=== PATIENT | male | born 1995 | race Caucasian/White ===

== ENCOUNTER 2017-06-02 14:02 | Emergency (ER) | payer SELFPAY ==
[~2017-06-02] VITALS: Ht 185.4 cm; Wt 77.3 kg
[2017-06-02] MEDS ORDERED: AUGMENTIN 875 MG TAB PO ONE (16:15)
[2017-06-02] MEDS ORDERED: NORCO, ANEXSIA 5/325MG TABLET (HYDROcodone/ACETAMINOPHEN) PO ONE (16:15)
--- NOTE | 2017-06-02 16:59 | REP ---
CT Head without contrast HISTORY: Headache COMPARISON: 11/12/2011 There is no intraparenchymal hemorrhage, acute infarct, mass or midline shift. The ventricular system is normal in appearance. There is no extra cerebral collection. There is no fracture. Minimal mucosal thickening is present in the left ethmoid sinus. IMPRESSION: There is no intracranial lesion. Signed by Oseas Gonzales MD 06/02/2017 04:50 P
[2017-06-02] MEDS ORDERED: AUGM875T28 PO (17:03)
[2017-06-02] MEDS ORDERED: NORCOTAB PO (17:03)
[2017-06-02 17:10] VITALS: BP 139/91
[2017-06-02] MEDS ORDERED: ONDANSETRON 4 MG ORAL DISINTEGRATING TAB (S0181) PO ONE (17:15)
== END 2017-06-02 17:12 | disposition home or self-care (01) ==
LOC: M ED 14:02
DX: J01.10 Acute frontal sinusitis, unspecified (principal); F17.210 Nicotine dependence, cigarettes, uncomplicated

== ENCOUNTER 2017-12-19 16:28 | Inpatient (IN) | payer MEDICAID, OTHER, SELFPAY ==
[2017-12-19] MEDS ORDERED: MAALOX 30 ML SUSP *UDC PO (22:45)
[2017-12-19] MEDS ORDERED: OLANZapine 5 MG TAB PO (22:45)
[2017-12-19] MEDS ORDERED: MOM 30ML SUSPENSION UDC PO (22:45)
[2017-12-20] MEDS: traZODone 50 MG TAB PO (00:53)
[2017-12-20] MEDS: ACETAMINOPHEN TAB 650MG DOSE (2X325MG) PO ×3 (00:53→15:35)
[2017-12-20 10:59] LABS: HEMATOCRIT 45.6 % (42.0-52.0); HEMOGLOBIN 15.8 g/dl (13.5-17.5); MEAN CORPUSCULAR HEMOGLOBIN 30.6 pg (27.0-33.0); MEAN CORPUSCULAR HGB CONC 34.6 g/dl (32.0-36.5); MEAN CORPUSCULAR VOLUME 88.2 fl (80.0-96.0); PLATELET COUNT, AUTOMATED 263 10^3/uL (150-450); RED BLOOD COUNT 5.17 10^6/uL (4.30-6.10); RED CELL DISTRIBUTION WIDTH 12.3 % (11.5-14.5)
[2017-12-20 11:20] LABS: ANION GAP 6 MEQ/L (8-16); AST/SGOT 14 U/L (7-37); BLOOD UREA NITROGEN 9 MG/DL (7-18); CALCIUM LEVEL 9.7 MG/DL (8.5-10.1); CARBON DIOXIDE LEVEL 29 MEQ/L (21-32); CHLORIDE LEVEL 105 MEQ/L (98-107); CREATININE FOR GFR 0.93 MG/DL (0.70-1.30); GLOMERULAR FILTRATION RATE > 60.0 (>60); GLUCOSE, FASTING 86 MG/DL (70-100); SODIUM LEVEL 140 MEQ/L (136-145)
[2017-12-20 11:21] LABS: ALBUMIN 4.6 GM/DL (3.2-5.2); ALBUMIN/GLOBULIN RATIO 1.28 (1.00-1.93); ALKALINE PHOSPHATASE 84 U/L (45-117); ALT/SGPT 21 U/L (12-78); BILIRUBIN,TOTAL 0.9 MG/DL (0.2-1.0); TOTAL PROTEIN 8.2 GM/DL (6.4-8.2)
[2017-12-20] MEDS: NICOTINE POLACRILEX 2 MG GUM PO ×2 (13:12→17:32)
[2017-12-20] MEDS: GABAPENTIN 100 MG CAP PO (21:53)
== END 2017-12-21 06:15 | disposition home or self-care (01) | DRG 760 ==
LOC: M ED 16:28 → M PSY 23:10
DX: F22 Delusional disorders (principal); R45.851 Suicidal ideations

== ENCOUNTER 2018-03-27 22:26 | Emergency (ER) | payer MEDICAID ==
[2018-03-27] MEDS: NS 1,000 ML IV (23:22)
[2018-03-27 23:29] LABS: ANION GAP 16 MEQ/L (8-16); BLOOD UREA NITROGEN 9 MG/DL (7-18); CALCIUM LEVEL 9.7 MG/DL (8.5-10.1); CARBON DIOXIDE LEVEL 20 MEQ/L (21-32); CHLORIDE LEVEL 106 MEQ/L (98-107); CPK CREATINE PHOSPHOKINASE 259 U/L (39-308); CREATININE FOR GFR 0.95 MG/DL (0.70-1.30); GLOMERULAR FILTRATION RATE > 60.0 (>60); GLUCOSE, FASTING 124 MG/DL (70-100); POTASSIUM SERUM 3.1 MEQ/L (3.5-5.1); SODIUM LEVEL 142 MEQ/L (136-145)
[2018-03-27 23:39] LABS: BASO % 0.4 % (0.0-1.0); EOS % 0.4 % (0.0-3.0); HEMATOCRIT 46.6 % (42.0-52.0); IMMATURE GRANULOCYTE % 0.3 % (0-3.0); LYMPH # 2.5 10^3/uL (1.5-6.5); LYMPH % 24.1 % (24.0-44.0); MEAN CORPUSCULAR HEMOGLOBIN 30.8 pg (27.0-33.0); MEAN CORPUSCULAR HGB CONC 36.5 g/dl (32.0-36.5); MEAN CORPUSCULAR VOLUME 84.4 fl (80.0-96.0); MONO # 0.6 10^3/uL (0.0-0.8); NEUTROPHILS # 7.3 10^3/uL (1.8-7.7); NEUTROPHILS % 68.8 % (36.0-66.0); PLATELET COUNT, AUTOMATED 225 10^3/uL (150-450); RED BLOOD COUNT 5.52 10^6/uL (4.30-6.10); RED CELL DISTRIBUTION WIDTH 11.9 % (11.5-14.5); WHITE BLOOD COUNT 10.5 10^3/uL (4.0-10.0)
[2018-03-28] MEDS: POTASSIUM CHLORIDE 10% LIQ 20 MEQ/15 ML UDC PO (00:21)
== END 2018-03-28 00:37 | disposition home or self-care (01) ==
LOC: M ED 03-28 00:37
DX: R25.2 Cramp and spasm (principal); T67.3XXA Heat exhaustion, anhydrotic, initial encounter; F41.9 Anxiety disorder, unspecified; F17.210 Nicotine dependence, cigarettes, uncomplicated
CPT/HCPCS: 82550

== ENCOUNTER 2019-01-30 01:24 | Emergency (ER) | payer MEDICAID, OTHER ==
[~2019-01-30] VITALS: Ht 182.9 cm; Wt 79.5 kg
[~2019-01-30 01:24] MED LIST: ARIP1TAB6 PO; AUGM875T28 PO; GABA-1171 PO; HYDR-3715 PO; IBUPOTC PO; TRAZ1TAB10 PO
[2019-01-30 01:27] VITALS: BP 142/98
[2019-01-30] MEDS ORDERED: NS 1,000 ML IV ONE (01:45)
== END 2019-01-30 02:34 | disposition left against medical advice (07) ==
LOC: M ED 01:24
DX: T67.5XXA Heat exhaustion, unspecified, initial encounter (principal); Y92.9 Unspecified place or not applicable; Y93.9 Activity, unspecified; Z53.21 Procedure and treatment not carried out due to patient leaving prior to being seen by health care provider; F32.9 Major depressive disorder, single episode, unspecified; Z72.0 Tobacco use

== ENCOUNTER 2019-08-29 16:45 | Inpatient (IN) | payer OTHER, SELFPAY ==
[~2019-08-29] VITALS: Ht 182.9 cm; Wt 69.7 kg
[2019-08-29 17:24] LABS: BASO % 0.2 % (0.0-1.0); HEMATOCRIT 59.6 % (42.0-52.0); LYMPH # 0.4 10^3/uL (1.5-5.0); LYMPH % 2.4 % (24.0-44.0); MEAN CORPUSCULAR HGB CONC 33.2 g/dl (32.0-36.5); MEAN CORPUSCULAR VOLUME 90.4 fl (80.0-96.0); MONO # 0.6 10^3/uL (0.0-0.8); MONO % 3.9 % (0.0-5.0); NEUTROPHILS # 14.9 10^3/uL (1.5-8.5); NEUTROPHILS % 93.1 % (36.0-66.0); PLATELET COUNT, AUTOMATED 248 10^3/uL (150-450); RED BLOOD COUNT 6.59 10^6/uL (4.30-6.10)
[2019-08-29 17:26] LABS: HEMOGLOBIN 19.8 g/dl (13.5-17.5)
[2019-08-29] MEDS ORDERED: ONDANSETRON 4MG/2ML VIAL (J2405) IV ONE (17:30)
[2019-08-29] MEDS ORDERED: KETOROLAC 30 MG/ML VIAL (J1885) IV ONE (17:30)
[2019-08-29] MEDS ORDERED: NS 1,000 ML IV ONE (17:30)
[2019-08-29 17:47] LABS: INFLUENZA A AMPLIFICATION NEGATIVE (NEGATIVE); INFLUENZA B AMPLIFICATION NEGATIVE (NEGATIVE)
[2019-08-29 17:52] LABS: ALBUMIN 5.5 GM/DL (3.2-5.2); BILIRUBIN,DIRECT 0.3 MG/DL (0.0-0.2); BILIRUBIN,TOTAL 1.1 MG/DL (0.2-1.0); TOTAL PROTEIN 9.3 GM/DL (6.4-8.2)
--- NOTE | 2019-08-29 17:57 | REP ---
Clinical: Chest pain and shortness of breath . Comparison: None . Technique: PA and lateral. Findings: The mediastinum and cardiac silhouette are normal. The lung de la garza are clear and without acute consolidation, effusion, or pneumothorax. The skeletal structures are intact and normal. Impression: 1. No acute cardiopulmonary process. Electronically Signed by Estevan Casas MD 08/29/2019 05:48 P
[2019-08-29 18:15] LABS: INR 1.22; PROTHROMBIN TIME 15.2 SECONDS (11.8-14.0)
[2019-08-29 18:16] LABS: PARTIAL THROMBOPLASTIN TIME 30.5 SECONDS (25.0-38.4)
[2019-08-29 18:30] LABS: CK-MB VALUE MASS 1.7 NG/ML (<3.6); CPK CREATINE PHOSPHOKINASE 114 U/L (39-308); MB/CK RELATIVE INDEX 1.49 (< OR =4); TROPONIN I < 0.02 NG/ML (< 0.10)
[2019-08-29] MEDS ORDERED: ISOVUE-370 76% 100ML VIAL (Q9967) As Ordered ONE (18:37)
[2019-08-29] MEDS ORDERED: NS 1,050 ML in IV 1 EA IV ONE (18:45)
--- NOTE | 2019-08-29 19:32 | REPVR ---
PROCEDURE INFORMATION: Exam: CT Angiography Chest With Contrast Exam date and time: 08/29/2019 6:29 PM Age: 24 years old Clinical indication: Shortness of breath; Chest pain; Additional info: Cp/sob TECHNIQUE: Imaging protocol: Computed tomographic angiography of the chest with intravenous contrast. 3D rendering: MIP and/or 3D reconstructed images were created by the technologist. Radiation optimization: All CT scans at this facility use at least one of these dose optimization techniques: automated exposure control; mA and/or kV adjustment per patient size (includes targeted exams where dose is matched to clinical indication); or iterative reconstruction. Contrast material: ISOVUE 370; Contrast volume: 100 ml; Contrast route: IV; COMPARISON: CR Chest, 2 view PA, Lat 08/29/2019 5:32 PM FINDINGS: Pulmonary arteries: There are no pulmonary emboli. Aorta: There is mild fusiform dilatation of the ascending thoracic aorta which measures 3.6 cm. maximally. There is no dissection or saccular component. Lungs: Unremarkable. No consolidation. No masses. Pleural space: Unremarkable. No pneumothorax. No pleural effusion. Heart: Unremarkable. No cardiomegaly. No pericardial effusion. Lymph nodes: Unremarkable. No enlarged lymph nodes. Bones/joints: Unremarkable. No acute fracture. Soft tissues: Unremarkable. IMPRESSION: 1. There is mild fusiform dilatation of the ascending thoracic aorta which measures 3.6 cm. maximally. There is no dissection or saccular component. 2. There are no pulmonary emboli. 3. No acute pulmonary parenchymal abnormalities. Electronically signed by: Abdulaziz Reynolds On 08/29/2019 19:32:09 PM
--- NOTE | 2019-08-29 19:38 | REPVR ---
PROCEDURE INFORMATION: Exam: CT Abdomen And Pelvis With Contrast Exam date and time: 08/29/2019 6:29 PM Age: 24 years old Clinical indication: Abdominal pain; Generalized; Additional info: Abd pain/v/d TECHNIQUE: Imaging protocol: Computed tomography of the abdomen and pelvis with intravenous contrast. Radiation optimization: All CT scans at this facility use at least one of these dose optimization techniques: automated exposure control; mA and/or kV adjustment per patient size (includes targeted exams where dose is matched to clinical indication); or iterative reconstruction. Contrast material: ISOVUE 370; Contrast volume: 100 ml; Contrast route: IV; COMPARISON: No relevant prior studies available. FINDINGS: Liver: Normal. No mass. Gallbladder and bile ducts: Normal. No calcified stones. No ductal dilation. Pancreas: Normal. No ductal dilation. Spleen: Normal. No splenomegaly. Adrenals: Normal. No mass. Kidneys and ureters: Normal. No hydronephrosis. Stomach and bowel: Unremarkable. No obstruction. No mucosal thickening. Appendix: No evidence of appendicitis. Intraperitoneal space: Unremarkable. No free air. No significant fluid collection. Vasculature: Unremarkable. No abdominal aortic aneurysm. Lymph nodes: Unremarkable. No enlarged lymph nodes. Bladder: Unremarkable as visualized. Reproductive: Unremarkable as visualized. Bones/joints: There is a grade 1/2 anterior spondylolisthesis of L5 on S1 secondary to bilateral L5 spondylolysis. Soft tissues: Unremarkable. IMPRESSION: There is a grade 1/2 anterior spondylolisthesis of L5 on S1 secondary to bilateral L5 spondylolysis. Electronically signed by: Abdulaziz Reynolds On 08/29/2019 19:38:38 PM
--- NOTE | 2019-08-29 19:57 | HPEPDOC ---
[facility] Medical History & Physical Date of Admission Aug 29, 2019 Date of Service: Aug 29, 2019 Primary Care Physician: Rome Pike MD Attending Physician: JEANNIE LASSITER MD History and Physical TIME OF SERVICE: 8:05 PM CHIEF COMPLAINT: Vomiting HISTORY OF PRESENT ILLNESS: This is a 23-year-old male who process with complaints of nonbloody emesis and diarrhea associated with his "heart racing", "muscle aches" fevers and chills that started yesterday after eating angle hair pasta and sausages that his purchased from [employer]. His also developed similar symptoms which have resolved. The patient came to the hospital because he continued to vomit and could not keep any liquids down. He thinks he's vomited more than 100 times in between yesterday and today and he thinks he had about 30 episodes of diarrhea associated with abdominal pain yesterday. REVIEW OF SYSTEMS: 12 point review of systems negative except as listed in HPI PAST MEDICAL/ SURGICAL HISTORY: None SOCIAL HISTORY: He smokes FAMILY HISTORY: CAD Hypertension ALLERGIES: Please see below. HOME MEDICATIONS: Please see below. PHYSICAL EXAMINATION: VITAL SIGNS: Please see below. GEN: Slim build / well developed/ NAD INTEGUMENT: not flushed/ not jaundice HEENT: NCAT / lips acyanotic /mucus membranes dry CVS: RRR/NMRG LUNGS: clear to auscultation bilaterally on room air ABDOMEN: Contour (flat) / soft & not tender with palpation MSK/EXTREMITIES: range of motion intact in all 4 extremities NEURO: CN 2-12 are grossly intact / speech is not dysarthric PSYCH: alert and oriented to person place and time/ able to understand and follow all commands LABORATORY DATA: See below. IMAGING: Chest x-ray " Impression: 1. No acute cardiopulmonary process." CTA chest " IMPRESSION: 1. There is mild fusiform dilatation of the ascending thoracic aorta which measures 3.6 cm. maximally. There is no dissection or saccular component. 2. There are no pulmonary emboli. 3. No acute pulmonary p arenchymal abnormalities. " MICROBIOLOGY: Please see below. ASSESSMENT: Mr. Clark is a 24-year-old male who is admitted for management of dehydration and LAMINE 2/2 gastroenteritis. PLAN: 1. SIRS/Sepsis secondary to viral gastroenteritis He doesn't look toxic, therefore it's unlikely that he is truly septic, the SIRs is likely reactive to gastroenteritis caused by the food that he and his ate. SIRS criteria include HR >90 / WBC >12 / RR > 20 Lactic acid is 3.5 QSOFA score = 1 = not high risk Plan: admit to medical floor / telemetry / intiate Sepsis protocol w repeat lactic acid / will not give antibiotics as this is likely viral gastroenteritis/ f/u blood cx / Acetaminophen PRN for fever / Zofran for vomiting 2. Polycythemia, likely due to dehydration Plan: IV fluids, follow-up CBC in the morning 3. Prerenal LAMINE due to vomiting and diarrhea His creatinine is1.4 which is higher than his previous creatinine of 0.95 The UA was positive for blood and RBCs. Plan: IVF / if his renal function doesn't improve, the daytime team may consider ordering Ulytes and a renal US 4. Tobacco abuse Plan: Nicotine patch. Smoking cessation education DVT PROPHYLAXIS: SCDs DISPOSITION: Home. After more than 2 midnight's stay Vital Signs Vital Signs Date Time Temp Pulse Resp B/P (MAP) Pulse Ox O2 Delivery O2 Flow Rate FiO2 08/29/19 17:14 08/29/19 16:45 99.0 122 22 97 Room Air Laboratory Data Labs 24H Laboratory Tests 2 08/29/19 17:07: Immature Granulocyte % (Auto) 0.4, Neutrophils (%) (Auto) 93.1H, Lymphocytes (%) (Auto) 2.4L, Monocytes (%) (Auto) 3.9, Eosinophils (%) (Auto) 0.0, Basophils (%) (Auto) 0.2, Neutrophils # (Auto) 14.9H, Lymphocytes # (Auto) 0.4L, Monocytes # (Auto) 0.6, Eosinophils # (Auto) 0.0, Basophils # (Auto) 0.0, Nucleated Red Blood Cells % (auto) 0.0, Total Bilirubin 1.1H, Direct Bilirubin 0.3H, Aspartate Amino Transf (AST/SGOT) 14, Alanine Aminotransferase (ALT/SGPT) 32, Alkaline Phosphatase 86, Total Protein 9.3H, Albumin 5.5H, Albumin/Globulin Ratio 1.45, Lipase 28L, Influenza Type A (RT-PCR) NEGATIVE, Influenza Type B (RT-PCR) NEGATIVE 08/29/19 17:08: POC Glucose (Misc Panel) 161H, POC Sodium (Misc Panel) 140, POC Potassium (Misc Panel) 4.2, POC Chloride (Misc Panel) 105, POC Total CO2 (Misc Panel) 22.0L, POC Blood Urea Nitrogen (Misc Panel 29H, POC Ionized Calcium (Misc Panel) 4.8, POC Creatinine (Misc Panel) 1.4H, POC Hematocrit (Misc Panel) 60.0H 08/29/19 17:50: Prothrombin Time 15.2H, Prothromb Time International Ratio 1.22, Activated Partial Thromboplast Time 30.5, D-Dimer, Quantitative 320.75, Lactic Acid Level 3.5*H, Total Creatine Kinase 114, Creatine Kinase MB 1.7, Creatine Kinase MB Relative Index 1.49, Troponin I < 0.02 CBC/BMP Laboratory Tests 08/29/19 17:07 Home Medications No Active Prescriptions or Reported Meds Allergies Coded Allergies: No Known Allergies (Unverified , 01/30/19) A-FIB/CHADSVASC A-FIB History Current/History of A-Fib/PAF?: No Current PO Anticoag Therapy: No JEANNIE LASSITER MD Aug 29, 2019 19:57
[2019-08-29] MEDS ORDERED: MAALOX 30 ML SUSP *UDC PO PRN (20:00)
[2019-08-29] MEDS ORDERED: ONDANSETRON 4MG/2ML VIAL (J2405) IV PRN (20:00)
[2019-08-29] MEDS ORDERED: MOM 30ML SUSPENSION UDC PO PRN (20:00)
[2019-08-29] MEDS ORDERED: ACETAMINOPHEN TAB 650MG DOSE (2X325MG) PO PRN (20:00)
[2019-08-29] MEDS: DOCUSATE SODIUM 100 MG CAP PO SCH (22:09)
[2019-08-29] MEDS: NS 1,000 ML IV SCH (22:09)
--- NOTE | 2019-08-29 22:10 | ECGEPIP ---
[facility] - ED Test Date: 2019-08-29 Pat Name: BRENDEN SEO Department: Room: - Gender: Male [employer]: : 1995 Requested By: MELISSA Diamond PA-C Order Number: [id number] Reading MD: Migel Thurman Measurements Intervals Julian Rate: 108 P: 84 CO: 128 QRS: 83 QRSD: 102 T: 69 QT: 311 QTc: 418 Interpretive Statements SINUS TACHYCARDIA RIGHT ATRIAL ENLARGEMENT LEFT ATRIAL ENLARGEMENT INCOMPLETE RIGHT BUNDLE BRANCH BLOCK BENIGN EARLY REPOLARIZATION SIMILAR TO 12/20/17 Electronically Signed on 08-29-2019 22:09:42 EST by Migel Thurman
[2019-08-29 23:05] VITALS: BP_SYST 146; BP_SYST 149; BP_SYST 154; BP_DIAS 101; BP_DIAS 103; BP_DIAS 97
[2019-08-29 23:21] VITALS: BP 154/101
[2019-08-30] MEDS: NS 1,000 ML IV SCH (00:13)
[2019-08-30 04:40] VITALS: BP 153/82
[2019-08-30 06:00] VITALS: BP 139/77
[2019-08-30 07:20] LABS: HEMATOCRIT 45.4 % (42.0-52.0); MEAN CORPUSCULAR HEMOGLOBIN 29.5 pg (27.0-33.0); MEAN CORPUSCULAR HGB CONC 32.4 g/dl (32.0-36.5); MEAN CORPUSCULAR VOLUME 91.2 fl (80.0-96.0); PLATELET COUNT, AUTOMATED 167 10^3/uL (150-450); RED BLOOD COUNT 4.98 10^6/uL (4.30-6.10); WHITE BLOOD COUNT 9.1 10^3/uL (4.0-10.0)
[2019-08-30 07:32] LABS: HEMOGLOBIN 14.7 g/dl (13.5-17.5)
[2019-08-30 07:44] LABS: BLOOD UREA NITROGEN 19 MG/DL (7-18); CALCIUM LEVEL 8.5 MG/DL (8.5-10.1); CARBON DIOXIDE LEVEL 24 MEQ/L (21-32); CHLORIDE LEVEL 110 MEQ/L (98-107); CREATININE FOR GFR 0.79 MG/DL (0.70-1.30); GLOMERULAR FILTRATION RATE > 60.0 (>60); GLUCOSE, FASTING 93 MG/DL (70-100); POTASSIUM SERUM 4.1 MEQ/L (3.5-5.1); SODIUM LEVEL 140 MEQ/L (136-145)
[2019-08-30] MEDS: DOCUSATE SODIUM 100 MG CAP PO SCH (08:34)
[2019-08-30 10:00] VITALS: BP 156/96
[2019-08-30] MEDS ORDERED: PEPT262T2 PO (10:14)
--- NOTE | 2019-08-30 11:51 | DS.PDOC ---
Discharge Summary General Date of Admission Aug 29, 2019 at 19:57 Date of Discharge 08/30/19 Discharge Summary PROCEDURES PERFORMED DURING STAY: None. ADMITTING DIAGNOSES: 1. . Vital gastroenteritis, acute kidney injury. DISCHARGE DIAGNOSES: 1. Vital gastroenteritis, acute kidney injury. COMPLICATIONS/CHIEF COMPLAINT: Adama,Gastroenteritis. HISTORY OF PRESENT ILLNESS: This is a 23-year-old male who process with complaints of nonbloody emesis and diarrhea associated with his "heart racing", "muscle aches" fevers and chills that started yesterday after eating angle hair pasta and sausages that his purchased from [employer]. His also developed similar symptoms which have resolved. The patient came to the hospital because he continued to vomit and could not keep any liquids down. He thinks he's vomited more than 100 times in between yesterday and today and he thinks he had about 30 episodes of diarrhea associated with abdominal pain yesterday. . HOSPITAL COURSE: Patient admitted with possible viral gastroenteritis and needed observation. Patient was started on IV fluids, overnight he responded very well to the conservative management in the morning. He was given a trial of regular for which he tolerated very well and he is asymptomatic, afebrile and will be discharged home today, his WBC count is within normal range and his BUN is improved as well and he will continue taken oral hydration for dehydration. Patient advised to eliminate any causes of viral gastroenteritis such as l eftover/spoiled food or restaurant food, etc.. DISCHARGE MEDICATIONS: Please see below. ALLERGIES: Please see below. PHYSICAL EXAMINATION ON DISCHARGE: VITAL SIGNS: Please see below. GENERAL: Within normal limits HEENT: PERRLA NECK: Supple CARDIOVASCULAR EXAMINATION: S1, S2, regular RESPIRATORY EXAMINATION: Clear to A&P ABDOMINAL EXAMINATION: Benign EXTREMITIES: No clubbing sinus edema SKIN: Normal NEUROLOGICAL EXAMINATION: . No focal motor sensory deficit PSYCHIATRIC EXAMINATION: Normal LABORATORY DATA: Please see below. IMAGING: CT abdomen and pelvis:IMPRESSION: There is a grade 1/2 anterior spondylolisthesis of L5 on S1 secondary to bilateral L5 spondylolysis. PROGNOSIS: good ACTIVITY: As tolerated. DIET: As tolerated DISCHARGE PLAN: Home DISPOSITION: 01 Home, Self-Care. DISCHARGE INSTRUCTIONS: 1. As per discharge instructions. ITEMS TO FOLLOWUP ON ON OUTPATIENT: 1. Follow with PCP as an outpatient. DISCHARGE CONDITION: Stable. TIME SPENT ON DISCHARGE: 25 minutes. Vital Signs/I&Os Vital Signs Date Time Temp Pulse Resp B/P (MAP) Pulse Ox O2 Delivery O2 Flow Rate FiO2 08/30/19 10:00 98.9 67 19 156/96 (116) 98 Room Air I&O- Last 24 Hours up to 6 AM 08/30/19 06:00 Intake Total 1600 ml Output Total 0 ml Balance 1600 ml Laboratory Data Labs 24H Laboratory Tests 2 08/29/19 17:07: Immature Granulocyte % (Auto) 0.4, Neutrophils (%) (Auto) 93.1H, Lymphocytes (%) (Auto) 2.4L, Monocytes (%) (Auto) 3.9, Eosinophils (%) (Auto) 0.0, Basophils (%) (Auto) 0.2, Neutrophils # (Auto) 14.9H, Lymphocytes # (Auto) 0.4L, Monocytes # (Auto) 0.6, Eosinophils # (Auto) 0.0, Basophils # (Auto) 0.0, Nucleated Red Blood Cells % (auto) 0.0, Total Bilirubin 1.1H, Direct Bilirubin 0.3H, Aspartate Amino Transf (AST/SGOT) 14, Alanine Aminotransferase (ALT/SGPT) 32, Alkaline Phosphatase 86, Total Protein 9.3H, Albumin 5.5H, Albumin/Globulin Ratio 1.45, Lipase 28L, Influenza Type A (RT-PCR) NEGATIVE, Influenza Type B (RT-PCR) NEGATIVE 08/29/19 17:08: POC Glucose (Misc Panel) 161H, POC Sodium (Misc Panel) 140, POC Potassium (Misc Panel) 4.2, POC Chloride (Misc Panel) 105, POC Total CO2 (Misc Panel) 22.0L, POC Blood Urea Nitrogen (Misc Panel 29H, POC Ionized Calcium (Misc Panel) 4.8, POC Creatinine (Misc Panel) 1.4H, POC Hematocrit (Misc Panel) 60.0H 08/29/19 17:50: Prothrombin Time 15.2H, Prothromb Time International Ratio 1.22, Activated Partial Thromboplast Time 30.5, D-Dimer, Quantitative 320.75, Lactic Acid Level 3.5*H, Total Creatine Kinase 114, Creatine Kinase MB 1.7, Creatine Kinase MB Relative Index 1.49, Troponin I < 0.02 08/29/19 20:35: Urine Color YELLOW, Urine Appearance CLEAR, Urine pH 5.0, Urine Specific [place] >1.060H, Urine Protein NEGATIVE, Urine Glucose (UA) NEGATIVE, Urine Ketones NEGATIVE, Urine Blood 1+H, Urine Nitrite NEGATIVE, Urine Bilirubin NEGATIVE, Urine Urobilinogen 0.2, Urine Leukocyte Esterase NEGATIVE, Urine WBC (Auto) 0, Urine RBC (Auto) 7H, Urine Hyaline Casts (Auto) 0, Urine Bacteria (Auto) NEGATIVE, Urine Squamous Epithelial Cells 0, Urine Sperm (Auto) 08/29/19 22:14: Lactic Acid Followup at 4 Hours 1.8 08/30/19 06:39: Nucleated Red Blood Cells % (auto) 0.0, Anion Gap 6L, Glomerular Filtration Rate > 60.0, Calcium Level 8.5 CBC/BMP Laboratory Tests 08/29/19 17:07 08/30/19 06:39 Microbiology Microbiology 08/29/19 Blood Culture, Received Pending Discharge Medications Scheduled PRN Bismuth Subsalicylate (Pepto-Bismol) 262 Mg Tablet, 262 MG PO Q4H PRN for ABDOMINAL PAIN Allergies Coded Allergies: No Known Allergies (Unverified , 01/30/19) VENUS BEAR MD Aug 30, 2019 11:51
== END 2019-08-30 10:51 | disposition home or self-care (01) | DRG 249 ==
LOC: M ED 16:45 → M ED INP 19:57 → ENRESERV 21:34 → M MS5PR 23:02 → M MSPAV 08-30 04:30
PROVIDERS: ADMIT Internal Medicine; ATTEND Internal Medicine
DX: A08.4 Viral intestinal infection, unspecified (principal); D75.1 Secondary polycythemia; E86.0 Dehydration; N17.9 Acute kidney failure, unspecified; F17.200 Nicotine dependence, unspecified, uncomplicated

== ENCOUNTER → 2022-05-03 | Outpatient (CLI) | payer MEDICAID, OTHER ==
[~2022-05-03] MED LIST changes: +PEPT262T2 PO
== END ==
LOC: M RAD 07:44
PROVIDERS: ATTEND Physician Assistant
DX: M54.2 Cervicalgia (principal)

== ENCOUNTER 2024-07-18 17:01 | Emergency (ER) | payer OTHER ==
[~2024-07-18] VITALS: Ht 185.4 cm; Wt 80.6 kg
[2024-07-18 17:45] LABS: HEMATOCRIT 44.7 % (42.0-52.0); HEMOGLOBIN 15.3 g/dl (13.5-17.5); MEAN CORPUSCULAR HEMOGLOBIN 30.7 pg (27.0-33.0); MEAN CORPUSCULAR HGB CONC 34.2 g/dl (32.0-36.5); MEAN CORPUSCULAR VOLUME 89.8 fl (80.0-96.0); PLATELET COUNT, AUTOMATED 246 10^3/uL (150-450); RED BLOOD COUNT 4.98 10^6/uL (4.30-6.10); WHITE BLOOD COUNT 8.1 10^3/uL (4.0-10.0)
[2024-07-18 18:09] LABS: ETHYL ALCOHOL (ETHANOL) < 0.003 % (0.000-0.010)
[2024-07-18 18:11] LABS: ALBUMIN 4.2 G/DL (3.2-5.2); ALKALINE PHOSPHATASE 78 U/L (40-129); ALT/SGPT 16 U/L (7.0-40); AST/SGOT 11 U/L (<34); BILIRUBIN,DIRECT 0.1 MG/DL (<0.4); BILIRUBIN,TOTAL 0.4 MG/DL (0.3-1.2); BLOOD UREA NITROGEN 8 MG/DL (9-23); CALCIUM LEVEL 9.5 MG/DL (8.5-10.1); CARBON DIOXIDE LEVEL 24 MMOL/L (20-31); CHLORIDE LEVEL 107 MMOL/L (98-107); CREATININE FOR GFR 0.66 MG/DL (0.70-1.30); GLOMERULAR FILTRATION RATE > 60.0 (>60); GLUCOSE, FASTING 105 MG/DL (60-100); POTASSIUM SERUM 3.9 MMOL/L (3.5-5.1); SALICYLATE LEVEL < 3.0 MG/DL (<30); SODIUM LEVEL 141 MMOL/L (136-145); TOTAL PROTEIN 7.6 G/DL (5.7-8.2)
[2024-07-18 18:18] LABS: THYROID STIMULATING HORMONE 0.882 uIU/ML (0.55-4.78)
[2024-07-18 18:20] LABS: AMPHETAMINES LEVEL URINE NEGATIVE (NEGATIVE); BARBITURATES URINE NEGATIVE (NEGATIVE); COCAINE METABOLITE URINE NEGATIVE (NEGATIVE); PHENCYCLIDINE URINE NEGATIVE (NEGATIVE)
[2024-07-18 18:21] LABS: BENZODIAZEPINES URINE NEGATIVE (NEGATIVE); METHADONE URINE NEGATIVE (NEGATIVE); OPIATES URINE NEGATIVE (NEGATIVE)
[2024-07-18 18:23] LABS: CANNABINOIDS URINE POSITIVE (NEGATIVE)
[2024-07-18] MEDS ORDERED: HOME MED LIST COMPLETE! XX SCH (19:20)
[2024-07-18 22:58] VITALS: BP 149/97; TEMP 98.3; O2SAT 97
== END 2024-07-18 23:00 | disposition home or self-care (01) ==
LOC: M ED 17:01
DX: F43.0 Acute stress reaction (principal); I10 Essential (primary) hypertension; F41.0 Panic disorder [episodic paroxysmal anxiety]; F17.290 Nicotine dependence, other tobacco product, uncomplicated; Z91.018 Allergy to other foods

== ENCOUNTER 2024-10-11 11:56 | Emergency (ER) | payer OTHER ==
[~2024-10-11] VITALS: Ht 185.4 cm; Wt 75.6 kg
[2024-10-11 13:06] LABS: BASO % 0.2 % (0.0-1.0); EOS % 0.1 % (0.0-3.0); HEMATOCRIT 46.3 % (42.0-52.0); LYMPH # 1.6 10^3/uL (1.5-5.0); LYMPH % 15.2 % (24.0-44.0); MEAN CORPUSCULAR HEMOGLOBIN 30.7 pg (27.0-33.0); MEAN CORPUSCULAR HGB CONC 34.6 g/dl (32.0-36.5); MEAN CORPUSCULAR VOLUME 88.7 fl (80.0-96.0); MONO # 0.5 10^3/uL (0.0-0.8); MONO % 4.9 % (2.0-8.0); NEUTROPHILS # 8.3 10^3/uL (1.5-8.5); NEUTROPHILS % 79.3 % (36.0-66.0); PLATELET COUNT, AUTOMATED 278 10^3/uL (150-450); RED BLOOD COUNT 5.22 10^6/uL (4.30-6.10); WHITE BLOOD COUNT 10.5 10^3/uL (4.0-10.0)
[2024-10-11 13:42] LABS: BLOOD UREA NITROGEN 8 MG/DL (9-23); CALCIUM LEVEL 10.8 MG/DL (8.5-10.1); CARBON DIOXIDE LEVEL 24 MMOL/L (20-31); CHLORIDE LEVEL 107 MMOL/L (98-107); CK-MB VALUE MASS < 1.0 NG/ML (<3.6); CPK CREATINE PHOSPHOKINASE 111 U/L (46-171); CREATININE FOR GFR 0.75 MG/DL (0.70-1.30); GLOMERULAR FILTRATION RATE > 60.0 (>60); GLUCOSE, FASTING 93 MG/DL (60-100); POTASSIUM SERUM 3.7 MMOL/L (3.5-5.1); SODIUM LEVEL 141 MMOL/L (136-145)
[2024-10-11] MEDS: NICOTINE 21MG/24HR 1 EA TRANSDERMAL TD ONE (16:43)
[2024-10-11 16:46] VITALS: BP 149/91; TEMP 98.9; O2SAT 99
== END 2024-10-11 17:21 | disposition home or self-care (01) ==
LOC: M ED 11:56
DX: F43.0 Acute stress reaction (principal); I45.10 Unspecified right bundle-branch block; F32.A Depression, unspecified; F17.210 Nicotine dependence, cigarettes, uncomplicated; F12.10 Cannabis abuse, uncomplicated; F10.10 Alcohol abuse, uncomplicated; Z91.018 Allergy to other foods

== ENCOUNTER 2024-10-31 11:06 | Emergency (ER) | payer OTHER ==
[~2024-10-31] VITALS: Ht 185.4 cm; Wt 76.4 kg
[2024-10-31] MEDS: BOOSTRIX VACCINE (TETANUS/DIPHTH/ACEL. PERTUSSIS) 0.5ML SYR IM.IMMUN ONE (12:35)
[2024-10-31 12:45] VITALS: BP 132/88; TEMP 98.1; O2SAT 100
== END 2024-10-31 12:59 | disposition home or self-care (01) ==
LOC: M ED 11:06
DX: S00.81XA Abrasion of other part of head, initial encounter (principal); W22.8XXA Striking against or struck by other objects, initial encounter; Y92.89 Other specified places as the place of occurrence of the external cause; Y93.89 Activity, other specified; Y99.9 Unspecified external cause status; Z23 Encounter for immunization; I10 Essential (primary) hypertension; F17.290 Nicotine dependence, other tobacco product, uncomplicated